=== PATIENT | female | born 1965 | race American Indian/Alaskan Native ===

== ENCOUNTER 2022-01-20 01:37 | Emergency (ER) | payer SELFPAY ==
--- NOTE | 2022-01-20 06:44 | Emergency Department Report ---
ED Lower Extremity HPI - General Chief Complaint: Extremity Injury, Lower Stated Complaint: SWOLLEN KNEE Time Seen by Provider: 01/20/22 06:36 Source: patient Mode of arrival: Ambulatory Limitations: No Limitations - History of Present Illness Initial Comments: Patient is a 56-year-old -[place] female that comes to the emergency room with left knee pain and swelling for 1 week. She states that she is working 2 full-time jobs including [employer]. She denies any trauma to the knee. She denies recalling the time when she had a popping sensation or cracking. She denies any history of arthritis. She does have a left knee effusion. She denies fall, car wreck, any other accident or bumping of the knee. She has had nothing like this in the past. She is ambulatory and nontoxic [id number] on arrival. She has no fever. Patient has no medical conditions is on no blood thinners, she has no autoimmune disorders. Complaint: knee injury -: Gradual, week(s) Place: home, work Severity: mild Improves With: nothing Worsens With: movement, other (Work) - Related Data Allergies Allergy/AdvReac Type Severity Reaction Status Date / Time No Known Allergies Allergy Verified 01/20/22 02:07 ED Review of Systems ROS: Stated complaint: SWOLLEN KNEE Other details as noted in HPI Comment: All other systems reviewed and negative ED Past Medical Hx - Past Medical History Previous Medical History?: No - Surgical History Past Surgical History?: No - Family History Family history: no significant - Social History Smoking Status: Never Smoker Substance Use Type: Alcohol ED Physical Exam - General Limitations: No Limitations General appearance: alert, in no apparent distress - Head Head exam: Present: atraumatic, normocephalic - Eye Eye exam: Present: normal appearance - ENT ENT exam: Present: mucous membranes moist - Neck Neck exam: Present: normal inspection - Respiratory Respiratory exam: Present: normal lung sounds bilaterally. Absent: respiratory distress - Cardiovascular Cardiovascular Exam: Present: regular rate, normal rhythm. Absent: systolic murmur, diastolic murmur, rubs, gallop - GI/Abdominal GI/Abdominal exam: Present: soft, normal bowel sounds - Extremities Exam Extremities exam: Present: normal inspection - Expanded Lower Extremity Exam Left Knee exam: Present: full ROM, tenderness, swelling Lower Leg exam: Present: normal inspection Ankle exam: Present: normal inspection - Back Exam Back exam: Present: normal inspection - Neurological Exam Neurological exam: Present: alert, oriented X3 - Psychiatric Psychiatric exam: Present: normal affect, normal mood - Skin Skin exam: Present: warm, dry, intact, normal color. Absent: rash ED Course Vital Signs 01/20/22 01/20/22 01:55 07:09 Temperature 98.6 F Pulse Rate 74 86 Respiratory 18 20 Rate Blood Pressure 161/89 Blood Pressure 146/90 [Right] O2 Sat by Pulse 98 98 Oximetry ED Lower Extremity MDM - Medical Decision Making Vital Signs 01/20/22 01/20/22 01:55 07:09 Temperature 98.6 F Pulse Rate 74 86 Respiratory 18 20 Rate Blood Pressure 161/89 Blood Pressure 146/90 [Right] O2 Sat by Pulse 98 98 Oximetry Patient educated on knee effusions and soft tissue injury. I have placed her in immobilizer and sent her home with crutches. Conservative treatment for a few days and then follow-up with orthopedics has been recommended. Patient being discharged home with discharge plan of care including use of immobilizer/crutches, diet, activity, medications and follow-up. She has been given a referral to orthopedics. Patient verbalizes understanding of discharge plan of care. On discharge patient remains neurovascularly intact. - Differential Diagnosis Knee injury Critical care attestation.: If time is entered above; I have spent that time in minutes in the direct care of this critically ill patient, excluding procedure time. ED Disposition Clinical Impression: Knee effusion Qualifiers: Laterality: left Qualified Code(s): M25.462 - Effusion, left knee Disposition: HOME / SELF CARE / HOMELESS Is pt being admited?: No Does the pt Need Aspirin: No Condition: Stable Instructions: Knee Effusion, [id number] Additional Instructions: use knee immobilizer and crutches until next week over use can cause problems follow up with ortho referral below ice rest elevate motrin 800 mg po every 8 hours with food will help with the inflammation this is over the counter follow up with ortho MD as we discussed Referrals: CRIS MO MD [Primary Care Provider] - 3-5 Days JONATHAN COURTNEY MD [Staff Physician] - 3-5 Days Time of Disposition: 06:42
[2022-01-20 07:10] VITALS: BP 146/90
== END 2022-01-20 07:10 | disposition home or self-care (01) ==
LOC: ED 01:37
DX: M25.462 Effusion, left knee (principal); Z72.89 Other problems related to lifestyle; Z79.899 Other long term (current) drug therapy
CPT/HCPCS: 99282